=== PATIENT | male | born 1990 | race American Indian/Alaskan Native ===

== ENCOUNTER 2018-08-01 14:21 | Emergency (ER) | payer OTHER ==
[2018-08-01 14:30] VITALS: BP 133/94
--- NOTE | 2018-08-01 14:31 | Emergency Department Report ---
Blank Doc - Documentation Documentation: This is a 28-year-old male that presents with abdominal pain with nausea. Den ies any vomiting. This initial assessment/diagnostic orders/clinical plan/treatment(s) is/are subject to change based on patient's health status, clinical progression and re- assessment by fellow clinical providers in the ED. Further treatment and workup at subsequent clinical providers discretion. Patient/guardians urged not to elope from the ED as their condition may be serious if not clinically assessed and managed. Initial orders include: 1- Patient sent to [facility] for further evaluation and treatment 2-labs 3- xr abd
[2018-08-01 14:56] LABS: Basophils % (Auto) 0.4 % (0.0-1.8); Eosinophils # (Auto) 0.1 K/mm3 (0.0-0.4); Eosinophils % (Auto) 0.6 % (0.0-4.3); Hemoglobin 15.9 gm/dl (11.8-15.2); Lymphocytes # (Auto) 2.2 K/mm3 (1.2-5.4); Lymphocytes % (Auto) 26.4 % (13.4-35.0); Mean Corpuscular HGB Conc 34 % (32-34); Mean Corpuscular Volume 95 fl (84-94); Monocytes # (Auto) 0.9 K/mm3 (0.0-0.8); Monocytes % (Auto) 10.7 % (0.0-7.3); Platelet Count 285 K/mm3 (140-440); Red Blood Count 4.93 M/mm3 (3.65-5.03); Red Cell Distribution Width 14.4 % (13.2-15.2)
[2018-08-01 15:15] LABS: Alanine Aminotransferase 20 units/L (7-56); Albumin 4.6 g/dL (3.9-5); BUN/Creatinine Ratio 12; Blood Urea Nitrogen 11 mg/dL (9-20); Calcium 9.4 mg/dL (8.4-10.2); Hemolysis Index 5
[2018-08-01 15:28] LABS: Bilirubin,Direct < 0.2 mg/dL (0-0.2)
--- NOTE | 2018-08-01 16:23 | Emergency Department Report ---
ED Abdominal Pain HPI - General Chief Complaint: Abdominal Pain Stated Complaint: ABD PAIN/NO BOWEL MOVEMENT Time Seen by Provider: 08/01/18 14:30 Source: patient Mode of arrival: Ambulatory Limitations: No Limitations - History of Present Illness Initial Comments: 28 y/o male pain is intermittent for a week and a half. Patient reports he has intermittent loose stools. He took Tylenol and Motrin. He reports that the pain is only lasts about 10 minutes and it goes away. Patient does admit to increased alcohol consumption and smokes weed daily. Patient denies any past medical history takes no medications on a daily basis has no known drug aller gies. Reports pain is only intermittent. Patient denies any fever or chills no nausea no vomiting at this time. MD Complaint: abdominal pain Onset/Timin -: week(s) Location: diffuse Migration to: no migration Severity scale (0 -10): 0 Quality: cramping Consistency: intermittent Worsens With: nothing Associated Symptoms: denies other symptoms - Related Data Allergies Allergy/AdvReac Type Severity Reaction Status Date / Time No Known Allergies Allergy Unverified 08/01/18 14:25 ED Review of Systems ROS: Stated complaint: ABD PAIN/NO BOWEL MOVEMENT Other details as noted in HPI Comment: All other systems reviewed and negative Constitutional: denies: chills, fever Eyes: denies: eye pain, eye discharge, vision change ENT: denies: ear pain, throat pain Respiratory: denies: cough, shortness of breath, wheezing Cardiovascular: denies: chest pain, palpitations Gastrointestinal: abdominal pain. denies: nausea, vomiting Genitourinary: denies: urgency, dysuria Musculoskeletal: denies: back pain, joint swelling, arthralgia Skin: denies: rash, lesions Neurological: denies: headache, weakness, paresthesias Psychiatric: denies: anxiety, depression Hematological/Lymphatic: denies: easy bleeding, easy bruising ED Past Medical Hx - Past Medical History Previous Medical History?: No - Surgical History Past Surgical History?: No - Social History Smoking Status: Never Smoker Substance Use Type: Alcohol, Marijuana ED Physical Exam - General Limitations: No Limitations General appearance: alert, in no apparent distress - Head Head exam: Present: atraumatic, normocephalic - Eye Eye exam: Present: normal appearance - ENT ENT exam: Present: mucous membranes moist - Neck Neck exam: Present: normal inspection - Respiratory Respiratory exam: Present: normal lung sounds bilaterally. Absent: respiratory distress - Cardiovascular Cardiovascular Exam: Present: regular rate, normal rhythm. Absent: systolic murmur, diastolic murmur, rubs, gallop - GI/Abdominal GI/Abdominal exam: Present: soft, normal bowel sounds. Absent: distended, tenderness, guarding, rebound ED Course Vital Signs 08/01/18 14:29 Temperature 98.2 F Pulse Rate 79 Respiratory 18 Rate Blood Pressure 133/94 O2 Sat by Pulse 98 Oximetry ED Medical Decision Making - Lab Data Result diagrams: 08/01/18 14:35 08/01/18 14:35 Lab Results 08/01/18 08/01/18 Range/Units 14:35 14:35 WBC 8.3 (4.5-11.0) K/mm3 RBC 4.93 (3.65-5.03) M/mm3 Hgb 15.9 H (11.8-15.2) gm/dl Hct 47.0 H (35.5-45.6) % MCV 95 H (84-94) fl MCH 32 (28-32) pg MCHC 34 (32-34) % RDW 14.4 (13.2-15.2) % Plt Count 285 (140-440) K/mm3 Lymph % (Auto) 26.4 (13.4-35.0) % [place] % (Auto) 10.7 H (0.0-7.3) % Eos % (Auto) 0.6 (0.0-4.3) % Baso % (Auto) 0.4 (0.0-1.8) % Lymph # 2.2 (1.2-5.4) K/mm3 [place] # 0.9 H (0.0-0.8) K/mm3 Eos # 0.1 (0.0-0.4) K/mm3 Baso # 0.0 (0.0-0.1) K/mm3 Seg Neutrophils % 61.9 (40.0-70.0) % Seg Neutrophils # 5.1 (1.8-7.7) K/mm3 Sodium 141 (137-145) mmol/L Potassium 4.3 (3.6-5.0) mmol/L Chloride 101.3 (98-107) mmol/L Carbon Dioxide 28 (22-30) mmol/L Anion Gap 16 mmol/L BUN 11 (9-20) mg/dL Creatinine 0.9 (0.8-1.5) mg/dL Estimated GFR > 60 ml/min BUN/Creatinine Ratio 12 % Glucose 112 H (75-100) mg/dL Calcium 9.4 (8.4-10.2) mg/dL Total Bilirubin 0.30 (0.1-1.2) mg/dL Direct Bilirubin < 0.2 (0-0.2) mg/dL Indirect Bilirubin 0.1 mg/dL AST 15 (5-40) units/L ALT 20 (7-56) units/L Alkaline Phosphatase 82 (35-129) units/L Total Protein 7.7 (6.3-8.2) g/dL Albumin 4.6 (3.9-5) g/dL Albumin/Globulin Ratio 1.5 % Lipase 53 (13-60) units/L - Radiology Data Radiology results: report reviewed Patient: OCTAVIANO LUONG MR#: [id number] 109 : 1990 Acct:[id number] Age/Sex: 28 / M ADM Date: 08/01/18 Loc: ED Attending Dr: Ordering Physician: MIGUEL GARCIA NP Date of Service: 08/01/18 Procedure(s): XR abd series w cxr 1V Accession Number(s): [id number] cc: MIGUEL GARCIA NP Fluoro Time In Minutes: PROCEDURE: XR ABD SERIES W CXR 1V TECHNIQUE: Chest x-ray, KUB and erect abdomen HISTORY: abd pain COMPARISONS: None FINDINGS: Trachea midline. Heart size normal. No pneumothorax. No effusion. No acute airspace disease No free air. No air-fluid level. Gas and stool throughout the colon. Nonobstructive bowel gas pattern No abnormal calcification noted No acute bony abnormality IMPRESSION: No acute abnormality.. This document is electronically signed by Ortiz Murrieta MD., Aug 01 2018 05:21:56 PM ET Transcribed By: MERCY Dictated By: ORTIZ MURRIETA MD Electronically Authenticated By: ORTIZ MURRIETA MD Signed Date/Time: 08/01/18 1724 DD/ 30 TD/TT: 08/01/181630 - Medical Decision Making 28-year-old male comes in for intermittent abdominal pain for week and a half. Basic labs have been ordered. Chest or abdominal x-ray is negative nonspecific gas pattern. Stool within the colon. Critical care attestation.: If time is entered above; I have spent that time in minutes in the direct care of this critically ill patient, excluding procedure time. ED Disposition Clinical Impression: Nonspecific abdominal pain Disposition: - TO HOME OR SELFCARE Is pt being admited?: No Does the pt Need Aspirin: No Condition: Stable Instructions: Abdominal Pain (ED) Additional Instructions: Take Tylenol and/or Motrin for pain. Follow up with a air sealing technician I have listed their information below for your convenience. Referrals: [facility] [Provider Group] - 3-5 Days
--- NOTE | 2018-08-01 17:24 | XRay Report ---
PROCEDURE: XR ABD SERIES W CXR 1V TECHNIQUE: Chest x-ray, KUB and erect abdomen HISTORY: abd pain COMPARISONS: None FINDINGS: Trachea midline. Heart size normal. No pneumothorax. No effusion. No acute airspace disease No free air. No air-fluid level. Gas and stool throughout the colon. Nonobstructive bowel gas pattern No abnormal calcification noted No acute bony abnormality IMPRESSION: No acute abnormality.. This document is electronically signed by Ortiz Murrieta MD., Aug 01 2018 05:21:56 PM ET
[2018-08-01] MEDS ORDERED: LEVSIN SL ONE (18:22)
[2018-08-01] MEDS ORDERED: LEVSIN SL SL ONE (18:31)
== END 2018-08-01 18:10 | disposition home or self-care (01) ==
LOC: ED 14:21
DX: R10.84 Generalized abdominal pain (principal); F12.10 Cannabis abuse, uncomplicated
CPT/HCPCS: 36415; 74022; 80048; 80076; 83690; 85025